=== PATIENT | female | born 1945 | race Caucasian/White ===

== ENCOUNTER 2017-08-10 21:12 | Emergency (ER) | payer OTHER ==
[~2017-08-10] VITALS: Ht 162.6 cm; Wt 66.9 kg
[~2017-08-10 21:12] MED LIST: HYDROCODON-ACE1 EAC7 PO
[2017-08-10] MEDS ORDERED: MOTRIN600 MG PO (23:02)
[2017-08-10 23:15] VITALS: BP 128/81
== END 2017-08-10 23:16 | disposition home or self-care (01) ==
LOC: EME 21:12
DX: S93.402A Sprain of unspecified ligament of left ankle, initial encounter (principal); W17.2XXA Fall into hole, initial encounter; Y93.01 Activity, walking, marching and hiking; Y92.007 Garden or yard of unspecified non-institutional (private) residence as the place of occurrence of the external cause
CPT/HCPCS: 73610; 99281; 99284